=== PATIENT | female | born 1970 | race Caucasian/White ===

== ENCOUNTER 2019-06-21 | Emergency (ER) | payer SELFPAY ==
[2019-06-21 16:13] LABS: HEMATOCRIT 38.8 % (37.0-47.0); HEMOGLOBIN 12.8 g/dl (12.0-16.0); IMMATURE GRANULOCYTES 0.3 % (0.0-5.0); MEAN CELL VOLUME 90.9 fL CALC (80.0-100.0); NEUT# 4.9 thou/uL (2.00-7.15); RED BLOOD COUNT 4.27 mill/uL (4.20-5.60); RED CELL DISTRI WIDTH 12.7 % (11.5-15.5)
[2019-06-21 16:29] LABS: ANION GAP 12 (6-22 (CALC)); BUN 12 mg/dL (7-17); BUN/CREATININE RATIO 23 (12-20 (CALC)); CARBON DIOXIDE 30 mmol/l (22-30); CHLORIDE 100 mmol/l (95-108); CREATININE 0.5 mg/dL (0.5-1.0); GFR > 60 ML/MIN (>=60 (CALC)); GFR FOR AFR.AMER. > 60 ML/MIN (>=60 (CALC)); POTASSIUM 3.1 mmol/l (3.5-5.1); SODIUM 138 mmol/l (137-146)
[2019-06-21] MEDS ORDERED: AMLODIPINE BES2.5 MG PO (19:51)
[2019-06-21] MEDS ORDERED: HYZAAR1 TA2 PO (19:51)
== END 2019-06-21 20:12 | disposition home or self-care (01) | DRG 305 ==
PROVIDERS: Family Medicine
DX: I10 Essential (primary) hypertension (principal); R07.9 Chest pain, unspecified; T46.5X6A Underdosing of other antihypertensive drugs, initial encounter; Z91.128 Patient's intentional underdosing of medication regimen for other reason

== ENCOUNTER 2019-11-25 19:13 | Emergency (ER) | payer SELFPAY ==
[~2019-11-25] VITALS: Ht 162.6 cm; Wt 82.3 kg
[~2019-11-25 19:13] MED LIST: AMLODIPINE BES2.5 MG PO; HYZAAR1 TA2 PO
[2019-11-25 20:01] LABS: HEMATOCRIT 39.3 % (37.0-47.0); IMMATURE GRANULOCYTES 0.4 % (0.0-5.0); MEAN CELL VOLUME 92.9 fL CALC (80.0-100.0); MEAN CORPUSCULAR HGB 30.7 pG CALC (26.0-32.0); MEAN CORPUSCULAR HGB CONC 33.1 g/dL CAL (32.0-36.0); NEUT# 5.95 thou/uL (2.00-7.15); RED BLOOD COUNT 4.23 mill/uL (4.20-5.60); RED CELL DISTRI WIDTH 12.3 % (11.5-15.5)
[2019-11-25 20:02] LABS: URINE BILIRUBIN - DIPSTICK NEGATIVE (NEGATIVE); URINE BLOOD DIPSTICK NEGATIVE (NEGATIVE); URINE COLOR YELLOW; URINE GLUCOSE - DIPSTICK NEGATIVE (NEGATIVE); URINE KETONE NEGATIVE (NEGATIVE); URINE LEUK ESTERASE NEGATIVE (NEGATIVE); URINE NITRITE - DIPSTICK NEGATIVE (Negative); URINE PH 7.5 (4.5-8.0); URINE PROTEIN - DIPSTICK NEGATIVE (NEG-TRACE); URINE UROBILINOGEN - DIPSTICK 0.2 E.U./dL (0.2)
[2019-11-25 20:18] LABS: ALKALINE PHOSPHATASE 146 u/l (38-126); AMYLASE 61 u/l (30-110); ANION GAP 14 (6-22 (CALC)); BILIRUBIN, TOTAL 0.4 mg/dL (0.0-1.4); BUN 15 mg/dL (7-17); BUN/CREATININE RATIO 27 (12-20 (CALC)); CARBON DIOXIDE 30 mmol/l (22-30); CHLORIDE 97 mmol/l (95-108); CREATININE 0.5 mg/dL (0.5-1.0); GFR > 60 ML/MIN (>=60 (CALC)); GFR FOR AFR.AMER. > 60 ML/MIN (>=60 (CALC)); LIPASE 59 u/l (23-300); POTASSIUM 3.5 mmol/l (3.5-5.1); SGOT/AST 26 u/l (14-36); SODIUM 138 mmol/l (137-146); TOTAL PROTEIN 8.4 g/dL (6.3-8.2)
[2019-11-25] MEDS ORDERED: AMLODIPINE BESYL5 MG PO (21:07)
[2019-11-25] MEDS ORDERED: PHENERGAN25 MG/TAB PO (21:07)
[2019-11-25] MEDS ORDERED: HYZAAR1 TAB PO (21:07)
[2019-11-25 21:26] VITALS: BP 170/77
== END 2019-11-25 21:26 | disposition home or self-care (01) | DRG 392 ==
LOC: ED 19:13
PROVIDERS: Family Medicine
DX: R11.2 Nausea with vomiting, unspecified (principal); R51 Headache; I10 Essential (primary) hypertension; T46.5X6A Underdosing of other antihypertensive drugs, initial encounter; Z91.120 Patient's intentional underdosing of medication regimen due to financial hardship

== ENCOUNTER 2021-11-26 15:40 | Emergency (ER) | payer BC ==
[~2021-11-26] VITALS: Ht 162.6 cm; Wt 85.0 kg
[~2021-11-26 15:40] MED LIST changes: +AMLODIPINE BESYL5 MG PO; +HYZAAR1 TAB PO; +PHENERGAN25 MG/TAB PO
[2021-11-26] MEDS ORDERED: PREDNISONE50 MG PO (16:00)
[2021-11-26] MEDS ORDERED: EPIPEN 2-P0.3 MG/0.3 IM (16:00)
[2021-11-26] MEDS ORDERED: ALLERGY RELF10 M3 PO (16:00)
[2021-11-26 19:35] VITALS: BP 146/87
== END 2021-11-26 19:45 | disposition home or self-care (01) | DRG 918 ==
LOC: ED 15:40
DX: T63.461A Toxic effect of venom of wasps, accidental (unintentional), initial encounter (principal); R20.2 Paresthesia of skin; I10 Essential (primary) hypertension